=== PATIENT | female | born 1980 | race Caucasian/White ===

== ENCOUNTER 2017-02-12 18:57 | Emergency (ER) | payer MEDICAID ==
[~2017-02-12] VITALS: Ht 167.6 cm; Wt 110.0 kg
[~2017-02-12 18:57] MED LIST: ALBU8.5H5
[2017-02-12 19:23] VITALS: Ht 167.6 cm; Wt 110.0 kg
[2017-02-12] MEDS ORDERED: ALBU18HF INHALATION (19:50)
[2017-02-12] MEDS ORDERED: PRED20TA PO (19:50)
[2017-02-12 19:59] VITALS: BP 136/81; PULSE 72; RESP 22; TEMP 97.6
[2017-02-12] MEDS ORDERED: predniSONE 20 MG TAB PO ONE (20:00)
--- NOTE | 2017-02-24 21:06 | ERD ---
ER Documentation Chief Complaint Date/Time DATE: 02/24/17 TIME: 21:02 Chief Complaint Asthma attack since last night with lung pain HPI Patient is a 36 yo female with asthma who presents with shortness of breath and chest pain. The patient says it started last night. It feels like previous asthma exacerbations. She has tried no medicines as of yet. Her symptoms have been constant but were worse today so she came to the ER. She is ambulatory and walks without difficulty. ROS All systems reviewed and are negative except as per history of present illness. Medications Home Meds Active Scripts Albuterol Sulfate* (Ventolin HFA*) 18 Gm Hfa.aer.ad, 2 PUFF INHALATION Q4H, #1 INHALER Prov:LANDY WOLFF MD 02/12/17 Prednisone* (Prednisone*) 20 Mg Tab, 60 MG PO DAILY for 4 Days, TAB Prov:LANDY WOLFF MD 02/12/17 Reported Medications Albuterol Sulfate* (Albuterol Sulfate* HFA) 8.5 Gm Hfa.aer.ad 12/26/09 Allergies Allergies: Coded Allergies: No Known Drug Allergies (Verified Allergy, Unknown, 09/16/10) PMhx/Soc History of Surgery: Yes (C-SECTIONX2) Anesthesia Reaction: No Hx Neurological Disorder: No Hx Respiratory Disorders: Yes (ASTHMA) Hx Cardiac Disorders: No Hx Psychiatric Problems: No Hx Miscellaneous Medical Probl: No Hx Alcohol Use: Yes (OCASSIONAL) Hx Substance Use: No Hx Tobacco Use: No Smoking Status: Never smoker FmHx Neg for diabetes Physical Exam Physical Exam Const: No obvious distress Head: Atraumatic Eyes: Normal Conjunctiva ENT: Normal External Ears, Nose and Mouth. Neck: Full range of motion..~ No meningismus. Resp: Diffuse expiratory wheezing without retractions or accessory muscle use Cardio: Regular rate and rhythm, no murmurs Abd: Soft, non tender, non distended. Normal bowel sounds Skin: No petechiae or rashes Back: No midline or flank tenderness Ext: No cyanosis, or edema Neur: Awake and alert Psych: Normal Mood and Affect Results 24 hrs Current Medications Medications (Trade) Dose Ordered Sig/Leigh Ann Route PRN Reason Start Time Stop Time Status Last Admin Dose Admin Prednisone (Prednisone) 60 mg ONCE ONCE PO 02/12/17 20:00 02/12/17 20:01 DC 02/12/17 19:54 Procedures/MDM Patient is a 36 yo female who presents with what appears to be an asthma exacerbation. She is well appearing at this time. The patient will be given a dose of prednisone in the ER and then will be given a prescription for ventolin and 4 more days of prednisone. I doubt status asthmaticus, acute coronary syndrome, pneumonia, pneumothorax, pulmonary embolism, or aortic dissection. I believe that outpatient management is appropriate but the patient will need close follow up with a primary doctor within 24-48 hours. She can return for any worsening symptoms. Departure Diagnosis: Primary Impression: Asthma with acute exacerbation Asthma severity: unspecified severity Qualified Code: J45.901 - Asthma with acute exacerbation, unspecified asthma severity Condition: Fair Patient Instructions: Asthma, Acute (Adult) Referrals: [facility] YOU HAVE RECEIVED A MEDICAL SCREENING EXAM AND THE RESULTS INDICATE THAT YOU DO NOT HAVE A CONDITION THAT REQUIRES URGENT TREATMENT IN THE EMERGENCY DEPARTMENT. FURTHER EVALUATION AND TREATMENT OF YOUR CONDITION CAN WAIT UNTIL YOU ARE SEEN IN YOUR DOCTORS OFFICE WITHIN THE NEXT 1-2 DAYS. IT IS YOUR RESPONSIBILITY TO MAKE AN APPOINTMENT FOR [facility]ARE. IF YOU HAVE A PRIMARY DOCTOR --you should call your primary doctor and schedule an appointment IF YOU DO NOT HAVE A PRIMARY DOCTOR YOU CAN CALL OUR PHYSICIAN REFERRAL HOTLINE AT IF YOU CAN NOT AFFORD TO SEE A PHYSICIAN YOU CAN CHOSE FROM THE FOLLOWING [facility] [address] [facility]. [facility] [address] [facility] [facility] [address] [facility] [facility] [address] [facility]. [facility] [address] [facility]. [facility] [address] Additional Instructions: Call your primary care doctor TOMORROW for an appointment during the next 1-2 days.See the doctor sooner or return here if your condition worsens before your appointment time. LANDY WOLFF MD Feb 24, 2017 21:05
== END 2017-02-12 19:59 | disposition home or self-care (01) ==
LOC: FTE 18:57
DX: J45.901 Unspecified asthma with (acute) exacerbation (principal)
CPT/HCPCS: 99284; J7512

== ENCOUNTER 2017-04-11 18:02 | Emergency (ER) | payer MEDICAID ==
[~2017-04-11] VITALS: Ht 167.6 cm; Wt 113.0 kg
[~2017-04-11 18:02] MED LIST changes: +ALBU18HF INHALATION; +PRED20TA PO
[2017-04-11 18:12] VITALS: Ht 167.6 cm; Wt 113.0 kg
--- NOTE | 2017-04-11 18:52 | ERD ---
ER Documentation Chief Complaint Date/Time DATE: 04/11/17 TIME: 18:50 Chief Complaint "lopez, dizziness on and off 3 days" normal neuro HPI 36-year-old female presents here in emergency department for complaints of headache on and off for the last 2 days. Patient states whenever she has the headache, she feels dizziness with this. Patient discussed the headache throbbing pain, 6/10 scale, intermittent, accompanied with dizziness. Patient denies any head injury. Patient denies any nausea or vomiting. Patient denies any blurry vision. Patient denies any head injury. Patient denies any fever or chills. Patient denies any neck pain. Patient denies any changes in balance or memory. Patient took Tylenol and Aleve for pain with mild relief. ROS All systems reviewed and are negative except as per history of present illness. Medications Home Meds Active Scripts Albuterol Sulfate* (Ventolin HFA*) 18 Gm Hfa.aer.ad, 2 PUFF INHALATION Q4H, #1 INHALER Prov:LANDY WOLFF MD 02/12/17 Prednisone* (Prednisone*) 20 Mg Tab, 60 MG PO DAILY for 4 Days, TAB Prov:LANDY WOLFF MD 02/12/17 Reported Medications Albuterol Sulfate* (Albuterol Sulfate* HFA) 8.5 Gm Hfa.aer.ad 12/26/09 Allergies Allergies: Coded Allergies: No Known Drug Allergies (Verified Allergy, Unknown, 09/16/10) PMhx/Soc Medical and Surgical Hx: pt denies Medical Hx History of Surgery: Yes (c-sec x 2) Anesthesia Reaction: No Hx Neurological Disorder: No Hx Respiratory Disorders: Yes (asthma) Hx Cardiac Disorders: No Hx Psychiatric Problems: No Hx Miscellaneous Medical Probl: No Hx Alcohol Use: Yes Hx Substance Use: No Hx Tobacco Use: No Smoking Status: Never smoker FmHx Family History: No coronary disease, No diabetes, No other Physical Exam Vitals Vital Signs Date Time Temp Pulse Resp B/P Pulse Ox O2 Delivery O2 Flow Rate FiO2 04/11/17 18:12 97.8 78 18 131/80 99 Physical Exam GENERAL: The patient is well developed and appropriate for usual state of health, in no apparent distress. CHEST: Clear to auscultation bilaterally. There are no rales, wheezes or rhonchi. HEART: Regular rate and rhythm. No murmurs, clicks, rubs or gallops. No S3 or S4. ABDOMEN: Soft, nontender and nondistended. Good bowel sounds. No rebound or guarding. No gross peritonitis. No gross organomegaly or masses. No Christopher sign or McBurney point tenderness. BACK: No midline or flank tenderness. EXTREMITIES: Equal pulses bilaterally. There is no peripheral clubbing, cyanosis or edema. No focal swelling or erythema. Full range of motion. Grossly neurovascularly intact. NEURO: Alert and oriented. Cranial nerves 2-12 intact. Motor strength in all 4 extremities with 5/5 strength. Sensation grossly intact. Normal speech and gait. Negative Romberg sign. Negative pronator drift. SKIN: There is no apparent rash or petechia. The skin is warm and dry. HEMATOLOGIC AND LYMPHATIC: There is no evidence of excessive bruising or lymphedema. No gross cervical, axillary, or inguinal lymphadenopathy. Results 24 hrs PROCEDURE: CT head, without contrast. CLINICAL INDICATION: Headache. TECHNIQUE: Noncontrast CT examination of the head, with axial, sagittal and coronal reformatted images. Automated dose exposure control was employed. CTDI: 44.58 and DLP: 630.20. COMPARISON: None. FINDINGS: No acute hemorrhage. Subarachnoid spaces are substantially preserved and symmetric. Ventricles are unremarkable. No mass effect. Null-white matter distinction is preserved without evident decreased attenuation to suggest acute or recent infarct. Sinuses and osseous structures are unremarkable. IMPRESSION: No acute process in the head. RPTAT: [facility]U Physician Brian Date Time Electronically viewed and signed by Physician Brian on 04/11/2017 19:58 RS/ CC: LICO BUITRAGO NP Procedures/MDM Medical Decision Making: Patient's symptoms of headache nonspecific at this time , can be from tension headache, can be also migraine-related. There is low suspicion for neurological emergencies at this time since patients neurologic exam is normal. Patient did not have any altered level consciousness, vomiting, changes in balance or memory after incident. Patients CT scan of the head does not show any neurological emergencies at this time. Was given for Fioricet with codeine that was advised to follow-up with primary care doctor in 2-3 days for reevaluation of symptoms. Patient is advised to return to emergency department for any worsening symptoms. Dispostion: Home. Stable Departure Diagnosis: Primary Impression: Headache Headache type: unspecified Headache chronicity pattern: unspecified pattern Intractability: not intractable Qualified Code: R51 - Nonintractable headache, unspecified chronicity pattern, unspecified headache type Condition: Stable Patient Instructions: Self-Care for Headaches LICO BUITRAGO NP April 11, 2017 18:52
--- NOTE | 2017-04-11 19:59 | RADRPT ---
PROCEDURE: CT head, without contrast. CLINICAL INDICATION: Headache. TECHNIQUE: Noncontrast CT examination of the head, with axial, sagittal and coronal reformatted im ages. Automated dose exposure control was employed. CTDI: 44.58 and DLP: 630.20. COMPARISON: None. FINDINGS: No acute hemorrhage. Subarachnoid spaces are substantially preserved and symmetric. Ventricles ar e unremarkable. No mass effect. Null-white matter distinction is preserved without evident decreased attenuation t o suggest acute or recent infarct. Sinuses and osseous structures are unremarkable. IMPRESSION: No acute process in the head. RPTAT: [facility]U Physician Brian Date Time Electronically viewed and signed by Physician Brian on 04/11/2017 19:58 RS/
[2017-04-11] MEDS ORDERED: BUTA1CAP39 PO (20:07)
[2017-04-11 20:17] VITALS: BP 143/90; PULSE 71; RESP 18
== END 2017-04-11 20:21 | disposition home or self-care (01) ==
LOC: FTE 18:02
DX: R51 Headache (principal); J45.909 Unspecified asthma, uncomplicated
CPT/HCPCS: 70450; Z7502

== ENCOUNTER 2017-06-03 00:25 | Emergency (ER) | payer MEDICAID ==
[~2017-06-03] VITALS: Ht 172.7 cm; Wt 113.5 kg
[~2017-06-03 00:25] MED LIST changes: +BUTA1CAP39 PO
[2017-06-03 00:39] VITALS: Ht 172.7 cm; Wt 113.5 kg
[2017-06-03] MEDS ORDERED: ALBUTEROL 0.5% (NEB) 2.5 MG/0.5 ML AMP INH STA (03:22)
[2017-06-03] MEDS ORDERED: IPRATROPIUM (NEB) 0.5 MG/2.5 ML AMP INH STA (03:22)
[2017-06-03] MEDS ORDERED: predniSONE 20 MG TAB PO STA (03:22)
--- NOTE | 2017-06-03 04:07 | RADRPT ---
PROCEDURE: Chest. CLINICAL INDICATION: Shortness of breath. TECHNIQUE: Single frontal view of the chest was obtained. COMPARISON: 10/26/2008. FINDINGS: The cardiac silhouette is magnified. The aortic arch is unremarkable. There is no focal consolidat ion, vascular congestion or pleural effusion. There is no pneumothorax. IMPRESSION: No evidence for active cardiopulmonary disease. .Dwayne Carmen MD, Date Time Electronically viewed and signed by .Dwayne Carmen MD, on 06/03/2017 04:07 .T/
[2017-06-03] MEDS ORDERED: PRED20TA PO (04:14)
[2017-06-03] MEDS ORDERED: ALBU2.5V3 NEB (04:15)
[2017-06-03] MEDS ORDERED: ALBU18HF INHALATION (04:15)
[2017-06-03 04:30] VITALS: BP 131/64; PULSE 87; RESP 16; TEMP 98.7
--- NOTE | 2017-06-03 06:00 | ERD ---
ER Documentation Chief Complaint Date/Time DATE: 06/03/17 TIME: 05:58 Chief Complaint SOB since 10am, suddenly. hx of asthma, no relieve w/ inhaler HPI This patient is a 36-year-old female with past medical history of asthma presenting to the emergency department with complaints of acute exacerbation of asthma since 10 AM today. Symptoms are intermittent. Symptoms were sudden in onset. The patient used an inhaler with only mild relief. Aggravating factors include exposure to dust. The patient denies significant dyspnea, chest pain, fevers, chills, or other symptoms. ROS All systems reviewed and are negative except as per history of present illness. Medications Home Meds Active Scripts Albuterol Sulfate* (Ventolin HFA*) 18 Gm Hfa.aer.ad, 2 PUFF INHALATION Q4H, #1 INHALER Prov:UNIQUE ANTOINE PA-C 06/03/17 Albuterol Sulfate* (Albuterol Sulfate* Neb) 0.083%-3 Ml Neb, 2.5 MG NEB Q4 Y for SHORTNESS OF BREATH, #30 EA Prov:UNIQUE ANTOINE PA-C 06/03/17 Prednisone* (Prednisone*) 20 Mg Tab, 40 MG PO DAILY for 4 Days, #8 TAB Prov:UNIQUE ANTOINE PA-C 06/03/17 Bdajdbsiozxji-Sejcjnguam-Vwwqrozy-Codeine* (Fioricet w/ Codeine*) [id number]- 30MG Capsule, 1 CAP PO Q6H Y for PAIN LEVEL 1-5, #20 CAP Prov:LICO BUITRAGO NP 04/11/17 Albuterol Sulfate* (Ventolin HFA*) 18 Gm Hfa.aer.ad, 2 PUFF INHALATION Q4H, #1 INHALER Prov:LANDY WOLFF MD 02/12/17 Prednisone* (Prednisone*) 20 Mg Tab, 60 MG PO DAILY for 4 Days, TAB Prov:LANDY WOLFF MD 02/12/17 Reported Medications Albuterol Sulfate* (Albuterol Sulfate* HFA) 8.5 Gm Hfa.aer.ad 12/26/09 Allergies Allergies: Coded Allergies: No Known Drug Allergies (Verified Allergy, Unknown, 09/16/10) PMhx/Soc History of Surgery: Yes (c-sections) Anesthesia Reaction: No Hx Neurological Disorder: No Hx Respiratory Disorders: Yes (asthma) Hx Cardiac Disorders: No Hx Psychiatric Problems: No Hx Miscellaneous Medical Probl: No Hx Alcohol Use: No Hx Substance Use: No Hx Tobacco Use: No Smoking Status: Never smoker Physical Exam Vitals Vital Signs Date Time Temp Pulse Resp B/P Pulse Ox O2 Delivery O2 Flow Rate FiO2 06/03/17 04:30 98.7 87 16 131/64 96 06/03/17 03:47 82 18 96 21 06/03/17 00:39 98.7 81 20 124/58 96 Physical Exam Const: Nontoxic, well-appearing female in no acute distress. Head: Atraumatic Eyes: Normal Conjunctiva ENT: Normal External Ears, Nose and Mouth. Neck: Full range of motion..~ No meningismus. Resp: Mild inspiratory wheezing and rhonchi noted to bilateral upper lung guido. Cardio: Regular rate and rhythm, no murmurs Abd: Soft, non tender, non distended. Normal bowel sounds Skin: No petechiae or rashes Back: No midline or flank tenderness Ext: No cyanosis, or edema Neur: Awake and alert Psych: Normal Mood and Affect Results 24 hrs Current Medications Medications (Trade) Dose Ordered Sig/Leigh Ann Route PRN Reason Start Time Stop Time Status Last Admin Dose Admin Albuterol (Proventil 0.5% (Neb)) 5 mg ONCE STAT INH 06/03/17 03:22 06/03/17 03:24 DC 06/03/17 03:47 Ipratropium [place] (Atrovent 0.02% (Neb)) 1 mg ONCE STAT INH 06/03/17 03:22 06/03/17 03:24 DC 06/03/17 03:47 Prednisone (Prednisone) 60 mg ONCE STAT PO 06/03/17 03:22 06/03/17 03:24 DC 06/03/17 03:31 [place] [address] Radiology Main Line: [phone] DIAGNOSTIC IMAGING REPORT Patient: SERGIO LONGO : 1980 Age: 36 Sex: F MR #: [id number] DOS: 06/03/17 0322 Ordering MD: UNIQUE ANTOINE PA-C Location: [facility] Room/Bed: PROCEDURE: Chest. CLINICAL INDICATION: Shortness of breath. TECHNIQUE: Single frontal view of the chest was obtained. COMPARISON: 10/26/2008. FINDINGS: The cardiac silhouette is magnified. The aortic arch is unremarkable. There is no focal consolidation, vascular congestion or pleural effusion. There is no pneumothorax. IMPRESSION: No evidence for active cardiopulmonary disease. .Dwayne Carmen MD, Date Time Electronically viewed and signed by .Dwayne Carmen MD, MD on 06/03/2017 04:07 .T/ CC: UNIQUE ANTOINE PA-C Procedures/MDM 36-year-old female presents to the emergency department with acute asthma exacerbation. The patient was treated in the department with medication nebulizer, and p.o. prednisone. Chest x-ray was negative for signs of pneumonia and interpreted by the radiologist. Pulse ox stayed consistent at 96 % on room air during the patient's ER stay, however she was feeling much improved on reevaluation and wheezing decreased. She is stable for outpatient management with a prescription for prednisone, and albuterol. Her questions and concerns were addressed and she agreed with the discharge plan and diagnosis. Strict ER return precautions were discussed. I have low suspicion for pneumothorax, pulmonary embolism, status asthmaticus, pneumonia, sepsis, or other emergent conditions. Close follow-up with the primary care physician was advised. Departure Diagnosis: Primary Impression: Asthma with acute exacerbation Asthma severity: unspecified severity Qualified Code: J45.901 - Asthma with acute exacerbation, unspecified asthma severity Condition: Fair Patient Instructions: Asthma, Acute (Adult) Referrals: [facility] YOU HAVE RECEIVED A MEDICAL SCREENING EXAM AND THE RESULTS INDICATE THAT YOU DO NOT HAVE A CONDITION THAT REQUIRES URGENT TREATMENT IN THE EMERGENCY DEPARTMENT. FURTHER EVALUATION AND TREATMENT OF YOUR CONDITION CAN WAIT UNTIL YOU ARE SEEN IN YOUR DOCTORS OFFICE WITHIN THE NEXT 1-2 DAYS. IT IS YOUR RESPONSIBILITY TO MAKE AN APPOINTMENT FOR FOLOW-UP CARE. IF YOU HAVE A PRIMARY DOCTOR --you should call your primary doctor and schedule an appointment IF YOU DO NOT HAVE A PRIMARY DOCTOR YOU CAN CALL OUR PHYSICIAN REFERRAL HOTLINE AT IF YOU CAN NOT AFFORD TO SEE A PHYSICIAN YOU CAN CHOSE FROM THE FOLLOWING [facility] CLINICS [facility] [address] [facility] [address] [facility] [address] [facility] [address] [facility] [address] [facility]. [facility]. [address] Additional Instructions: Follow up with your PCP within the next 1-3 days for a repeat evaluation. If you require a referral to a specialist, your Primary Care Provider may be able to provide this for you. In most patient cases, a referral is not required. If you have further questions regarding this matter, please ask your Primary Care Provider. Return the the emergency department immediately if symptoms worsen or change. If you have any questions regarding medications, ask your pharmacist or us before you leave. If any adverse reactions, occur while taking your medications, discontinue the treatment and return to the emergency department immediately. If any new or worsening symptoms, uncontrolled fevers, or other unexplained symptoms occur, return to the emergency department immediately. Take your medications as directed, and complete the entire course of treatment. UNIQUE ANTOINE PA-C Jun 03, 2017 06:00
== END 2017-06-03 04:32 | disposition home or self-care (01) ==
LOC: FTE 00:25
DX: J45.901 Unspecified asthma with (acute) exacerbation (principal)
CPT/HCPCS: 71010; 94664; J7512; Z7502; Z7610

== ENCOUNTER 2017-09-13 16:44 | Emergency (ER) | payer MEDICAID ==
[~2017-09-13] VITALS: Ht 157.5 cm; Wt 89.0 kg
[~2017-09-13 16:44] MED LIST changes: +ALBU2.5V3 NEB; +CETI10CA PO; +GUAI120S26 PO; +IPRA3AMP INH; +PRED50TA PO
[2017-09-13 16:49] VITALS: Ht 157.5 cm; Wt 89.0 kg
[2017-09-13] MEDS ORDERED: DEXAMETHASONE 10 MG/ML 1 ML INJ IV STA (19:16)
[2017-09-13] MEDS ORDERED: IPRATROPIUM (NEB) 0.5 MG/2.5 ML AMP NEB STA (19:16)
[2017-09-13] MEDS ORDERED: ALBUTEROL 0.083% (NEB) 2.5 MG/3 ML AMP NEB STA (19:16)
--- NOTE | 2017-09-13 19:16 | ERD ---
ER Documentation Chief Complaint Date/Time DATE: 09/13/17 TIME: 19:14 Chief Complaint asthma inhalers not helping HPI This 37-year-old female presents to emergency department for asthma exacerbation that started yesterday, pt reports that she ran out of Advair, and is almost our of albuterol, pt reports using albuterol 6x today patient reports wheezing, cough, shortness of breath. Denies fever, chills, or chest pain, denies palpitations. ROS All systems reviewed and are negative except as per history of present illness. Medications Home Meds Active Scripts Ipratropium-Albuterol (Ipratropium-Albuterol) 0.5-3 Mg/3 Ml Ampul.neb, 3 ML INH Q4H Y for SHORTNESS OF BREATH, #30 AMP Prov:LICO BUITRAGO NP 07/19/17 Prednisone* (Prednisone*) 50 Mg Tablet, 50 MG PO DAILY, #5 TAB Prov:LICO BUITRAGO NP 07/19/17 Cetirizine Hcl* (Zyrtec*) 10 Mg Capsule, 10 MG PO DAILY, #30 TAB.CHEW Prov:LICO BUITRAGO NP 07/19/17 Enahnkpdowc-B-Lbsjekkbbx Hb* (Guaifenesin* DM Syrup) 120 Ml Syrup, 10 ML PO Q4H Y for COUGH, #120 ML Prov:LICO BUITRAGO NP 07/19/17 Albuterol Sulfate* (Ventolin HFA*) 18 Gm Hfa.aer.ad, 2 PUFF INHALATION Q4H, #1 INHALER Prov:UNIQUE ANTOINE PA-C 06/03/17 Albuterol Sulfate* (Albuterol Sulfate* Neb) 0.083%-3 Ml Neb, 2.5 MG NEB Q4 Y for SHORTNESS OF BREATH, #30 EA Prov:UNIQUE ANTOINE PA-C 06/03/17 Prednisone* (Prednisone*) 20 Mg Tab, 40 MG PO DAILY for 4 Days, #8 TAB Prov:UNIQUE ANTOINE PA-C 06/03/17 Mdsviowymdfjl-Fobzdeceih-Wzywzsaf-Codeine* (Fioricet w/ Codeine*) [id number]- 30MG Capsule, 1 CAP PO Q6H Y for PAIN LEVEL 1-5, #20 CAP Prov:LICO BUITRAGO NP 04/11/17 Albuterol Sulfate* (Ventolin HFA*) 18 Gm Hfa.aer.ad, 2 PUFF INHALATION Q4H, #1 INHALER Prov:LANDY WOLFF MD 02/12/17 Prednisone* (Prednisone*) 20 Mg Tab, 60 MG PO DAILY for 4 Days, TAB Prov:LANDY WOLFF MD 02/12/17 Reported Medications Albuterol Sulfate* (Albuterol Sulfate* HFA) 8.5 Gm Hfa.aer.ad 12/26/09 Allergies Allergies: Coded Allergies: No Known Drug Allergies (Verified Allergy, Unknown, 07/19/17) PMhx/Soc History of Surgery: Yes ( x 2) Anesthesia Reaction: No Hx Neurological Disorder: No Hx Respiratory Disorders: Yes (asthma) Hx Cardiac Disorders: No Hx Psychiatric Problems: No Hx Miscellaneous Medical Probl: No Hx Alcohol Use: No Hx Substance Use: No Hx Tobacco Use: No Smoking Status: Never smoker Physical Exam Vitals Vital Signs Date Time Temp Pulse Resp B/P Pulse Ox O2 Delivery O2 Flow Rate FiO2 09/13/17 20:19 98 22 97 21 09/13/17 19:44 85 21 121/77 100 Room Air 09/13/17 19:33 Simple Mask 10 09/13/17 19:31 83 24 95 21 09/13/17 16:49 98.1 89 18 126/81 95 Vitals stable, triage notes reviewed Physical Exam Const: Well-nourished well-hydrated well-appearing 37-year-old female in short of breath, posturing, oxygen saturation is 98% on room air. In no acute distress Head: Eyes: Normal Conjunctiva, PERRLA, EOMI ENT: Normal External Ears, Nose and Mouth. Neck: Resp: Inspiratory expiratory wheeze, diminished bases, poor air movement. Cardio: Regular rate and rhythm, no murmurs Abd: Skin: Back: Ext: Neur: Awake and alert Psych: Normal Mood and Affect Results 24 hrs Current Medications Medications (Trade) Dose Ordered Sig/Leigh Ann Route PRN Reason Start Time Stop Time Status Last Admin Dose Admin Albuterol (Proventil 0.083% (Neb)) 5 mg ONCE STAT NEB 09/13/17 19:16 09/13/17 19:18 DC 09/13/17 19:30 Ipratropium [place] (Atrovent 0.02% (Neb)) 0.5 mg ONCE STAT NEB 09/13/17 19:16 09/13/17 19:18 DC 09/13/17 19:31 Dexamethasone (Decadron) 10 mg ONCE STAT IV 09/13/17 19:16 09/13/17 19:18 DC 09/13/17 19:29 Albuterol (Proventil 0.5% (Neb)) 5 mg ONCE STAT INH 09/13/17 20:09 09/13/17 20:11 DC 09/13/17 20:16 Procedures/MDM This 37-year-old female presents to emergency department for asthma exacerbation , reports running out of her Advair, and that she has been using her albuterol 6 times a day with no improvement of symptoms. Patient feels short of breath, physical exam and history findings include tight inspiratory expiratory wheeze with diminished bases, patient immediately placed in recliner, albuterol, Atrovent hand-held nebulized treatment, post assessment with improved aeration, wheezing continues, tenuous albuterol ordered, Decadron 10 mg given intramuscularly, patient reassessed after second albuterol dose with decreased wheezing, improved aeration, plan to discharge home with Advair 250/50, albuterol MDI. Follow-up with primary physician for reevaluation, patient was told that oral steroids were not indicated that she was treated with Decadron, steroids would remain in system 48 hours. Return to emergency department if symptoms worsen, shortness of breath, chest pain, fever. Patient is stable with no new complaints during ER course, clinically there is no current evidence to suggest pneumonia sepsis, acute acute coronary syndromes, pulmonary embolism or any other emergent condition appearing to require further evaluation or hospitalization. I feel the patient is stable for discharge at this time. I have discussed results, examination findings, the treatment plan with the patient and family present prior to discharge. Indications for emergent reevaluation, side effects of medication were also discussed. All questions were answered. Patient verbalizes understanding and agrees with plan of care. Departure Diagnosis: Primary Impression: Asthma with acute exacerbation Asthma severity: moderate Asthma persistence: persistent Qualified Code: J45.41 - Moderate persistent asthma with acute exacerbation Condition: Good Patient Instructions: Asthma, Acute (Adult) Additional Instructions: Thank you for for coming to [facility] for your care today. Please ask your nurse or provider if you have questions about your care today and do not leave until all your questions have been answered. Please use any medications given as directed and follow-up with your doctor (or the doctor you were referred to) in the next 2-3 days. If you do not have a primary care doctor you may follow up at the [facility] (listed below). You may also use motrin and tylenol as needed for fever and/or pain unless instructed otherwise by your provider or nurse. Indications for more urgent follow-up have been discussed, but you may return to the Emergency Department at ANY time for any worrisome or worsening symptoms. If you have abdominal pain, please know that no test or exam you received is perfect and you should follow up within 8 hours for continued pain. If you had any imaging studies today, such as an X-Ray or CT Scan, these studies will be reviewed later by a radiologist. You will be called if there are important findings that were not identified today, so make sure the contact information you provided at registration is correct. If you received any narcotic pain control medicine today, such as Vicodin, Morphine or Dilaudid, your coordination and judgment may be affected for a number of hours. Please do not drive or operate heavy machinery, and you may want someone to assist you at home. If you were given a prescription for narcotic medication, be aware that it is very addictive- use sparingly and only if necessary. KERRY FRANCO Sep 13, 2017 19:16
[2017-09-13] MEDS ORDERED: ALBUTEROL 0.5% (NEB) 2.5 MG/0.5 ML AMP INH STA (20:09)
[2017-09-13] MEDS ORDERED: ADV25050 INHALATION (22:10)
[2017-09-13] MEDS ORDERED: ALBU18HF INHALATION (22:11)
[2017-09-13 22:24] VITALS: BP 134/87; PULSE 93; RESP 16
== END 2017-09-13 22:26 | disposition home or self-care (01) ==
LOC: FTE 16:44
DX: J45.41 Moderate persistent asthma with (acute) exacerbation (principal)
CPT/HCPCS: 94644; 94664; 96374; J1100; Z7502; Z7610

== ENCOUNTER 2018-07-04 21:29 | Emergency (ER) | END 2018-07-05 01:28 | disposition home or self-care (01) ==

== ENCOUNTER 2018-11-09 21:51 | Emergency (ER) | END 2018-11-10 01:20 | disposition home or self-care (01) ==